=== PATIENT | female | born 1960 | race Caucasian/White ===

== ENCOUNTER 2017-07-17 11:42 | Emergency (ER) | payer BC ==
[2017-07-17] MEDS ORDERED: KETOROLAC 30 MG/ML VIAL IM ONE (12:42)
[2017-07-17] MEDS ORDERED: HYDROMORPHONE HCL 1MG/ML **SYRINGE IM ONE (12:42)
[2017-07-17] MEDS ORDERED: DIAZEPAM 5 MG/1 ML TUBX IM ONE (12:42)
[2017-07-17] MEDS ORDERED: PROMETHAZINE HCL 25 MG/ML VIAL IM ONE (12:42)
--- NOTE | 2017-07-17 12:56 | Emergency Department Record ---
History of Present Illness - General Chief Complaint: Back Pain/Injury Stated Complaint: LOWER BACK PAIN Time Seen by Provider: 07/17/17 12:33 Source: Patient Mode of Arrival: Ambulatory Limitations: No limitations - History of Present Illness Initial Comments: pt lifted a box and twisted a few weeks ago and injured her back. it has been getting progressively worse. she has been going to the chiropractor. now she has pain and numbness going down her l leg. her family doctor refused to see her because there was a question of workmans comp. she is having no problems with her bowel or bladder. MD Complaint: Back pain Onset/Timin -: Days(s) Place: Work Radiation: Left leg Severity: Moderate Severity scale (1-10): 10 Quality: Aching Consistency: Constant Improves With: None Worsens With: None Context: While lifting Associated Symptoms: Numbness, Other Treatments Prior to Arrival: Acetaminophen, NSAIDS - Related Data Home Medications Medication Instructions Recorded Confirmed Last Taken Losartan/Hydrochlorothiazide 1 each PO DAILY 07/17/17 07/17/17 07/17/17 [Losartan-Hctz 100-25 mg Tab] Previous Rx's Medication Instructions Recorded Cyclobenzaprine HCl [Flexeril] 10 mg PO TID #14 tablet 07/17/17 Hydrocodone/Acetaminophen [Lagrange 1 each PO QID #10 tablet 07/17/17 5-325 Tablet] Ibuprofen [Motrin 600Mg] 600 mg PO Q6H #20 tablet 07/17/17 Allergies Allergy/AdvReac Type Severity Reaction Status Date / Time cephalexin [From Keflex] Allergy HIVES Verified 07/17/17 12:12 acetaminophen AdvReac NAUSEA Verified 07/17/17 12:12 [From Tylenol-Codeine #3] codeine AdvReac NAUSEA Verified 07/17/17 12:12 [From Tylenol-Codeine #3] oxycodone [From Percocet] AdvReac NAUSEA AND Verified 07/17/17 12:12 VOMITING Travel Screening - Travel/Exposure Within Last 30 Days Have you traveled within the last 30 days?: No - Travel/Exposure Within Last Year Have you traveled outside the [place] in the last year?: No - Additonal Travel Details Have you been exposed to anyone with a communicable illness?: No - Travel Symptoms Symptom Screening: None Review of Systems Reviewed: No additional complaints except as noted below Constitutional: Reports: As per HPI. Denies: Chills, Fever, Malaise, Night sweats, Weakness, Weight change Eyes: Reports: As per HPI. Denies: Eye discharge, Eye pain, Photophobia, Vision change ENT: Reports: As per HPI. Denies: Congestion, Dental pain, Ear pain, Epistaxis , Hearing loss, Throat pain Respiratory: Reports: As per HPI. Denies: Cough, Dyspnea, Hemoptysis, Stridor, Wheezes Cardiovascular: Reports: As per HPI. Denies: Arrhythmia, Chest pain, Dyspnea on exertion, Edema, Murmurs, Orthopnea, Palpitations, Paroxysmal nocturnal dyspnea, Rheumatic Fever, Syncope Endocrine: Reports: As per HPI. Denies: Fatigue, Heat or cold intolerance, Polydipsia, Polyuria Gastrointestinal: Reports: As per HPI. Denies: Abdominal pain, Constipation, Diarrhea, Hematemesis, Hematochezia, Melena, Nausea, Vomiting Genitourinary: Reports: As per HPI. Denies: Abnormal menses, Discharge, Dyspareunia, Dysuria, Frequency, Hematuria, Incontinence, Retention, Urgency Musculoskeletal: Reports: As per HPI. Denies: Arthralgia, Back pain, Gout, Joint swelling, Myalgia, Neck pain Skin: Reports: As per HPI. Denies: Bruising, Change in color, Change in hair/ nails, Lesions, Pruritus, Rash Neurological: Reports: As per HPI. Denies: Abnormal gait, Confusion, Headache, Numbness, Paresthesias, Seizure, Tingling, Tremors, Vertigo, Weakness Psychiatric: Reports: As per HPI. Denies: Anxiety, Auditory hallucinations, Depression, Homicidal thoughts, Suicidal thoughts, Visual hallucinations Hematological/Lymphatic: Reports: As per HPI. Denies: Anemia, Blood Clots, Easy bleeding, Easy bruising, Swollen glands Past Medical History - SOCIAL HISTORY Smoking Status: Never smoker Alcohol Use: Occasional Drug Use: None - RESPIRATORY Hx Respiratory Disorders: Yes Hx Asthma: Yes (when ) - CARDIOVASCULAR Hx Cardio Disorders: Yes Hx Irregular Heartbeat: Yes (SVT) Comment:: ablation - NEURO Hx Neuro Disorders: No - GI Hx GI Disorders: Yes Hx Irritable Bowel: Yes - Hx Genitourinary Disorders: No - ENDOCRINE Hx Endocrine Disorders: No - MUSCULOSKELETAL Hx Musculoskeletal Disorders: Yes Hx Back Injury: Yes - PSYCH Hx Psych Problems: No - HEMATOLOGY/ONCOLOGY Hx Hematology/Oncology Disorders: No Family Medical History Any Significant Family History?: No Physical Exam - General General Appearance: Alert, Oriented x3, Cooperative, Moderate distress - Head Head exam: Normal inspection - Eye Eye exam: Normal appearance, PERRL, EOMI Pupils: Normal accommodation - ENT ENT exam: Normal exam, Mucous membranes moist, Normal external ear exam, Normal orophraynx Ear exam: Normal external inspection. negative: External canal tenderness Nasal Exam: Normal inspection. negative: Discharge, Sinus tenderness Mouth exam: Normal external inspection, Tongue normal Teeth exam: Normal inspection. negative: Dental caries Throat exam: Normal inspection. negative: Tonsillar erythema, Tonsillar exudate - Neck Neck exam: Normal inspection, Full ROM. negative: Tenderness - Respiratory Respiratory exam: Normal lung sounds bilaterally. negative: Respiratory distress - Cardiovascular Cardiovascular Exam: Regular rate, Normal rhythm, Normal heart sounds - GI/Abdominal GI/Abdominal exam: Soft, Normal bowel sounds. negative: Tenderness - Rectal Rectal exam: Deferred - exam: Deferred - Extremities Extremities exam: Normal inspection, Full ROM, Normal capillary refill. negative: Tenderness - Back Back exam: Reports: Muscle spasm, Paraspinal tenderness, Tenderness. Denies: Full ROM, Rash noted - Neurological Neurological exam: Alert, CN II-XII intact, Normal gait, Oriented X3 - Psychiatric Psychiatric exam: Normal affect, Normal mood - Skin Skin exam: Dry, Intact, Normal color, Warm Course Vital Signs 07/17/17 11:43 Temperature 98.0 F Pulse Rate 84 Respiratory 16 Rate Blood Pressure 125/107 Pulse Ox 98 Disposition Disposition: Discharge Clinical Impression: Radicular leg pain Disposition: Home Health Service Condition: (1) Good Instructions: Lumbar Radiculopathy (ED) Additional Instructions: follow up with family doctor. return sooner if worse. no lifting more then 10 lb for 5 days. follow up with neurosurgery and occupational health. Prescriptions: Cyclobenzaprine HCl [Flexeril] 10 mg PO TID #14 tablet Hydrocodone/Acetaminophen [Lagrange 5-325 Tablet] 1 each PO QID #10 tablet Ibuprofen [Motrin 600Mg] 600 mg PO Q6H #20 tablet Referrals: EDEN JORDAN [] - Quality - Quality Measures Quality Measures: N/A - Blood Pressure Screening Does Patient Have Any of the Following: No Blood Pressure Classification: Hypertensive Reading Systolic Measurement: 125 Diastolic Measurement: 107 Screening for High Blood Pressure: < Pre-Hypertensive BP, F/U Documented > [ [id number]] Pre-Hypertensive Follow-up Interventions: Follow-up with rescreen every year.
== END 2017-07-17 14:00 | disposition home or self-care (01) ==
LOC: ER 11:42
DX: G89.11 Acute pain due to trauma (principal); M54.16 Radiculopathy, lumbar region; M54.5 Low back pain; X50.9XXA Other and unspecified overexertion or strenuous movements or postures, initial encounter; Y99.0 Civilian activity done for income or pay
CPT/HCPCS: 99283 ×2; 96372; J1885; J1170; J2550; J3360